=== PATIENT | male | born 1995 | race Caucasian/White ===

== ENCOUNTER 2021-08-05 16:49 | Emergency (ER) | payer BC ==
[~2021-08-05] VITALS: Ht 190 cm; Wt 102.0 kg
[2021-08-05 16:55] VITALS: BP 152/78
--- NOTE | 2021-08-05 17:24 | ED Integumentary General ---
General Chief Complaint: Bite-Animal/Human/Insect Stated Complaint: CAT BITE ON R HAND AND FACE Nursing Triage Note: ARRIVED VIA AMB TO ROOM. STATES HE HEARD A KITTEN IN A PIPE AND REACHED HIS RIGHT HAND IN THE PIPE AND WAS SCRATCHED BY THE MOTHER CAT THEN THE MOTHER CAT JUMPED ON HIS HEAD AND SCRATCHED HIM ON HIS FACE. CAME INCASE HE NEEDED THE RABIES VACCINE. Source: patient History of Present Illness Date Seen by Provider: Aug 05, 2021 Time Seen by Provider: 16:52 Initial Comments 26-year-old male presenting with multiple cat scratches to his right hand and face. He states that he heard a kitten in a pipe and reached his hand into trying to get it out of the pipe. Meanwhile the mother Scratched his hand and jumped on his head. He did not feel like he had any actual bites as much is just scratches. However he was seen at a clinic and told that he might need to get rabies vaccinations and to come to the emergency department. He states his last tetanus was about 5 to 6 years ago. He did clean the wounds at home prior to being seen. Timing/Duration: this afternoon Severity: mild Location: face, extremities (Right hand and forearm) Possible Cause: other (Cat scratches) Associated Symptoms: No blisters, No change in skin texture, No edema, No fever, No flushing, No headache, No hives, No jaundice, No malaise, No nasal congestion, No numbness, No pallor, No paresthesia, No petechiae, No rash, No sore throat, No swelling/mass/lumps, No tingling Allergies and Home Medications Allergies Coded Allergies: Sulfa (Sulfonamide Antibiotics) (Verified Allergy, Unknown, 08/05/21) Mom has Anaphlyaxis so he avoids it himself Patient Home Medication List Home Medication List Reviewed: Yes Azithromycin (Azithromycin) 500 Mg Tablet, 500 MG PO DAILY Prescribed by: ROEL OLIVEIRA on 08/05/21 0855 Review of Systems Review of Systems Constitutional: No chills, No fever EENTM: no symptoms reported Respiratory: no symptoms reported Cardiovascular: no symptoms reported Gastrointestinal: no symptoms reported Genitourinary: no symptoms reported Musculoskeletal: no symptoms reported Skin: see HPI Psychiatric/Neurological: No Symptoms Reported Endocrine: No Symptoms Reported Past Fduwomb-Zwsnzr-Silpnx Hx Patient Social History Tobacco Use?: Yes Smoking Status: Current Someday Smoker Substance use?: No Alcohol Use?: Yes Alcohol Frequency: Once in a while Immunizations Up To Date 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: [employer] Physical Exam Vital Signs Vital Signs - First Documented 08/05/21 16:55 Temp 36.3 Pulse 96 Resp 16 B/P (MAP) 152/78 (102) Pulse Ox 97 O2 Delivery Room Air Capillary Refill : Less Than 3 Seconds General Appearance: WD/WN, no apparent distress HEENT: PERRL/EOMI, normal ENT inspection, pharynx normal, other (No signs of bleeding or bites on his scalp) Neck: non-tender, full range of motion, supple, normal inspection Cardiovascular: normal peripheral pulses, regular rate, rhythm Respiratory: chest non-tender, lungs clear, normal breath sounds Extremities: normal range of motion, normal capillary refill, other (Mild tend erness around the areas of scratches on his right hand and forearm) Neurologic/Psychiatric: supervisor contact and service clerks II-XII nml as tested, no motor/sensory deficits, alert, normal mood/affect, oriented x 3 Skin: warm/dry, other (Multiple scratches on his right hand and forearm and right side of face) Progress/Results/Core Measures Results/Orders Vital Signs/I&O 08/05/21 16:55 Temp 36.3 Pulse 96 Resp 16 B/P (MAP) 152/78 (102) Pulse Ox 97 O2 Delivery Room Air Blood Pressure Mean: 102 Progress Progress Note #1: Progress Note Will place patient on Zithromax to help try and prevent cat scratch fever. Will discuss option of rabies vaccinations and see has a low risk of being exposed to rabies with the cat. It was a provoked attack as he was trying to get the kitten away from the mother. Progress Note #2: Progress Note After reviewing the low risk for rabies from a provoked attack he is describing he was in agreement to defer rabies shots and immunoglobulin. Advised if he had concerns in the next day or 2 he could always return to get those injections. However his risk for rabies exposure would be low based on evaluation of the wounds and description of the event Departure Impression Primary Impression: Cat scratch of multiple sites Disposition: 01 HOME, SELF-CARE Condition: Stable Departure-Patient Inst. Decision time for Depature: 17:32 Referrals: NO,LOCAL PHYSICIAN (PCP/Family) Primary Care Physician Patient Instructions: Cat Scratch Disease (DC), Wound Care ED Add. Discharge Instructions: Keep scratches and abrasions clean with soap and water. May apply antibiotic ointment to help prevent infection. Take full course of azithromycin to treat for possible exposure to cat scratch fever. All discharge instructions reviewed with patient and/or family. Voiced understa nding. Scripts Azithromycin (Azithromycin) 500 Mg Tablet 500 MG PO DAILY for cat scratch for 5 Days, #5 TAB 0 Refills Prov: ROEL OLIVEIRA MD 08/05/21 Work/School Note: Work Release Form Date Seen in the Emergency Department: Aug 05, 2021 Return to Work: Aug 08, 2021 Restrictions: No Restrictions ROEL OLIVEIRA MD Aug 05, 2021 17:24
[2021-08-05] MEDS ORDERED: AZIT500T9 PO (17:33)
== END 2021-08-05 17:45 | disposition home or self-care (01) ==
LOC: ER FS 16:52
DX: S60.511A Abrasion of right hand, initial encounter (principal); S50.811A Abrasion of right forearm, initial encounter; S00.81XA Abrasion of other part of head, initial encounter; F17.200 Nicotine dependence, unspecified, uncomplicated; W55.03XA Scratched by cat, initial encounter
CPT/HCPCS: 99281